=== PATIENT | male | born 1995 | race Caucasian/White ===

== ENCOUNTER 2017-06-12 08:56 | Emergency (ER) | payer SELFPAY ==
[2017-06-12 08:57] VITALS: BP 150/108; PULSE 59; RESP 22; TEMP 36.1; O2SAT 98; BMI 32.1
--- NOTE | 2017-06-12 09:08 | RAD_ITS ---
STUDY: X-RAY - LEFT HAND, ATTENTION MIDDLE FINGER REASON FOR EXAM: Male, 22 years old. Trauma, pain TECHNIQUE: 3 view(s) of the finger were obtained. COMPARISON: None. FINDINGS: Normal metacarpal head. Normal metacarpophalangeal joint. Normal proximal phalanx. Normal middle phalanx. There is a comminuted fracture of the third distal phalanx. There is overlying soft tissue swelling and irregularity. Normal proximal interphalangeal joint. Normal distal interphalangeal joint. RAD/Finger(s) Min 2 Views IMPRESSION: Comminuted fracture of the distal third phalanx. Overlying soft tissue injury suggests an open fracture. Electronically Signed: Robbie Giordano DO at 10:00 EST Tel , Service support ,
--- NOTE | 2017-06-12 09:58 | ED.VISSUMM ---
- ER Visit Summary Date of Service: 06/12/17 Chief Complaint: [Injury to left long finger] History of Present Illness: The patient is a 22 M [presents to the emergency department with an injury to his left long finger that occurred this morning. Patient states that he was helping a friend take off the tire off of a rim when it injured his left long finger. Patient is right-hand dominant. Patient is up-to-date on tetanus. Patient was seen in urgent care and referred to the emergency department.] Physical Examination: [Left long finger-patient has tenderness over the distal phalanx with nail avulsed from underneath the nail fold. Neurovascularly intact distally. He has good range of motion at the PIP and DIP joint.] Test Results: [X-rays of the left long finger obtained showed a comminuted fracture of the distal phalanx.] Emergency Department Course and Treatment: [Patient had a digital block performed using 1% lidocaine total of 8 cc used. Using sterile rubber bands and was able to get good hemostasis. Wound cleansed with Shur-Clens and irrigated with copious saline. Using curved hemostats I was able to remove the nail off of the nail bed. The proximal nail bed had a complex laceration totaling about 1.5 cm total length. Using 6-0 Vicryl a total of 4 single interrupted sutures placed with good wound edge approximation of nail bed. The nail was then sewn back in the place underneath the nail fold. Clean dressing and splint was applied.] Treatment Plan: [Patient will be given a prescription for Keflex and [place] for pain. Patient will be referred to orthopedics for follow-up within next 3-5 days.] Disposition: [Discharged home in stable condition] Impression: [Left long finger distal phalanx fracture-open Left long finger nail avulsion with nailbed laceration and simple repair] This note was generated with [employer] dictation software. It may contain incorrect words, spelling, and punctuation that were not noted in review of the chart prior to signing ED Disposition - Plan for ED Patient: Chief Complaint: Laceration Referrals: Care Physician,No Primary [Primary Care Provider] -
--- NOTE | 2017-06-12 10:01 | ED.DCSUM_ITS ---
- ER Visit Summary Date of Service: 06/12/17 Chief Complaint: [Injury to left long finger] History of Present Illness: The patient is a 22 M [presents to the emergency department with an injury to his left long finger that occurred this morning. Patient states that he was helping a friend take off the tire off of a rim when it injured his left long finger. Patient is right-hand dominant. Patient is up -to-date on tetanus. Patient was seen in urgent care and referred to the emergency department.] Physical Examination: [Left long finger-patient has tenderness over the distal phalanx with nail avulsed from underneath the nail fold. Neurovascularly intact distally. He has good range of motion at the PIP and DIP joint.] Test Results: [X-rays of the left long finger obtained showed a comminuted fracture of the distal phalanx.] Emergency Department Course and Treatment: [Patient had a digital block performed using 1% lidocaine total of 8 cc used. Using sterile rubber bands and was able to get good hemostasis. Wound cleansed with Shur-Clens and irrigated with copious saline. Using curved hemostats I was able to remove the nail off of the nail bed. The proximal nail bed had a complex laceration totaling about 1.5 cm total length. Using 6-0 Vicryl a total of 4 single interrupted sutures placed with good wound edge approximation of nail bed. The nail was then sewn back in the place underneath the nail fold. Clean dressing and splint was applied.] Treatment Plan: [Patient will be given a prescription for Keflex and [place] for pain. Patient will be referred to orthopedics for follow-up within next 3-5 days.] Disposition: [Discharged home in stable condition] Impression: [Left long finger distal phalanx fracture-open Left long finger nail avulsion with nailbed laceration and simple repair] This note was generated with [employer] dictation software. It may contain incorrect words, spelling, and punctuation that were not noted in review of the chart prior to signing ED Disposition - Plan for ED Patient: Chief Complaint: Laceration Referrals: Care Physician,No Primary [Primary Care Provider] -
--- NOTE | 2017-06-12 10:02 | ED.DEP ---
ED Disposition - Plan for ED Patient: Chief Complaint: Laceration Instructions: ED Fx Finger Open, ED Avulsion Nail Complete Prescriptions: Hydrocodone Bitart/Apap 5-325 [Ballantine 5/325] 1 - 2 tab PO Q4H PRN PRN #20 tab PRN Reason: Pain Cephalexin [Keflex] 500 mg PO Q6 #40 cap Referrals: Care Physician,No Primary [Primary Care Provider] - Ziggy Mao MD [STAFF PHYSICIAN] - 3-5 Days
[2017-06-12] MEDS: Cephalexin 250 MG Capsule 500 MG PO (10:27)
[2017-06-12] MEDS: HYDROcodone Bitartrate/Apap 5/325 Tablet PO (10:35)
[2017-06-12] MEDS: Cefazolin 1 GM/50 ML BAG IV (10:47)
[2017-06-12 11:41] VITALS: BP 140/78; PULSE 88; RESP 18; O2SAT 98
== END 2017-06-12 11:43 | disposition home or self-care (01) ==
PROVIDERS: Emergency Provider Emergency Medicine
DX: S62.633B Displaced fracture of distal phalanx of left middle finger, initial encounter for open fracture (principal); S61.313A Laceration without foreign body of left middle finger with damage to nail, initial encounter; X58.XXXA Exposure to other specified factors, initial encounter; Y93.9 Activity, unspecified; Y92.9 Unspecified place or not applicable; F12.90 Cannabis use, unspecified, uncomplicated; Z72.89 Other problems related to lifestyle; Z72.0 Tobacco use
CPT/HCPCS: 11760; 73140; 96365; 96366; 99285; A4216

== ENCOUNTER 2018-06-11 11:52 | Emergency (ER) | payer SELFPAY ==
[2018-06-11] VITALS (11 sets, daily range): BP systolic 98–163; BP diastolic 56–87; PULSE 76–95; RESP 16; TEMP 36.7; O2SAT 97–100; BMI 29.5
--- NOTE | 2018-06-11 12:27 | CM.ED ---
Social Work Note Pt pink slipped by PD. Per RNDavid, the pt was on the phone with his rwaeeh-jq-ist who contact PD. The pt was found behind [place] in his car. Reports that he has been living out of his car and used methamphetamine in the last week. He was recently diagnosed with severe depression by his counselor at [facility], but he is unable to provide the counselor's name at this time. Made the comment to nursing that he just wants to wrap his car around a tree and told the physician that he cannot give me what I want. Pt would have the means to harm himself via a MVA. Sitter with pt and crisis to evaluate for psychiatric placement. SW to continue to follow and assist as needed. Jennifer Alonzo, SWATHI, EARNESTINE
--- NOTE | 2018-06-11 12:29 | ED.RN ---
when asked what brings pt in and what can we do to help pt.. pt states.. you won't do what i need to make me feel better. when asked what that is pt refuses to answer. when asked again pt states i planned to wrap my car around a tree today, my life is going down the tubes. pt admits has been living in his car, was recently diagnosed with severe depression. no meds prescribed.. pt admits to going on a meth binge but states he is not a frequent user. pd at bedside. pink slip completed. pt with 1 on 1 sitter
--- NOTE | 2018-06-11 12:35 | ED.VISSUMM ---
- ER Visit Summary Date of Service: 06/11/18 Chief Complaint: Suicidal ideation History of Present Illness: The patient is a 23 M with a history of depression. He presents today with suicidal ideation. He plan to drive his car into a tree. It sounds like he has had difficulties with his job. He recently lost his job and he says he lost his family and home. He has been staying in his car. Police found him in his car, and they brought him here for suicidal ideation. They filled out a pink slip. He reports methamphetamine use, last use was 3 days ago. Physical Examination: Afebrile and vital signs unremarkable. Alert and oriented. Depressed mood and flat affect. Poor eye contact. Head and neck are atraumatic. Heart regular. Lungs clear. Abdomen soft. Skin appears normal. Test Results: Labs, tox screen, alcohol level pending. Emergency Department Course and Treatment: Patient had suicide precautions. He was pink slipped by police. Medical clearance testing was done. Hemoglobin 17, platelets 135, chloride 108, glucose 113, total bilirubin 1.9. Tox positive for amphetamines. Alcohol negative. Patient medically cleared for transfer to psychiatric facility. Treatment Plan: As above Disposition: Transfer pending crisis evaluation Impression: 1. Suicidal ideation 2. Methamphetamine use This note was generated with [employer] dictation software. It may contain incorrect words, spelling, and punctuation that were not noted in review of the chart prior to signing ED Disposition - Plan for ED Patient: Chief Complaint: Suicidal Referrals: Care Physician,No Primary [Primary Care Provider] -
[2018-06-11 12:48] LABS: Absolute Neutrophil Count 4.3 X10^3/uL (2.0-7.7); Basophil# 0.03 X10^3/uL; Basophil% 0.5 % (0-1); Eosinophil# 0.19 X10^3/uL; Eosinophils% 2.9 % (0-5); Hematocrit 48.3 % (40-54); Lymphocyte % 21.4 % (19-41); Mean Corp Hgb Conc 35.2 g/gl (32-36); Mean Corpuscular Hgb 29.8 pg (27.0-32.0); Mean Corpuscular Volume 84.6 fL (80-94); Mean Platelet Vol. 13.2 fl (6.2-12.0); Monocyte% 9.2 % (0-10); Neutrophil # 4.31 X10^3/uL (2.7-7.7); Neutrophil % 65.8 % (47-70); POSITIVE COUNT NO; POSITIVE DIFFERENTIAL NO; POSITIVE MORPHOLOGY NO; Platelet Count 135 K/mm3 (150-450); RBC Distribution Width SD 36.7 fl (35.1-43.9); Red Blood Count 5.71 M/mm3 (4.6-6.2); White Blood Count 6.5 K/mm3 (4.4-11.0)
[2018-06-11 13:05] LABS: ALB/GLOB Ratio 1.3 RATIO (0.9-2.4); AST(SGOT) 16 U/L (15-37); Alanine Aminotransfer ALT/SGPT 34 U/L (16-61); Albumin, Serum 4.1 g/dL (3.2-5.0); Alkaline Phosphatase 104 U/L (45-117); Anion Gap 8 (5-15); BUN 14 mg/dL (7-18); BUN/Creat Ratio 12.8 RATIO (10-20); Calcium,Total 8.4 mg/dL (8.5-10.1); Chloride 108 mmol/L (98-107); Creatinine, Serum 1.09 mg/dL (0.70-1.30); EST Glomerular Filtration Rate 87 mL/min (>60); Est Glom Filt Rate - Afr Amer 106 mL/min (>60); Estimated Creatinine Clearance 120.45 ml/min; Globulin 3.2 g/dL (2.2-4.2); Glucose 113 mg/dL (74-106); Potassium 3.8 mmol/L (3.5-5.1); Protein, Total 7.3 g/dL (6.4-8.2); Sodium Level 141 mmol/L (136-145)
[2018-06-11 13:16] LABS: Amphetamine Urine VISTA POSITIVE (<1000 ng/mL); Barbiturate Urine VISTA NEGATIVE (< 200 ng/mL); Benzodiazepine Urine VISTA NEGATIVE (< 200 ng/mL); Cocaine Urine VISTA NEGATIVE (< 300 ng/mL); Ecstacy Urine VISTA POSITIVE (< 500 ng/mL); Methadone Urine VISTA NEGATIVE (< 300 ng/mL); PCP Urine VISTA NEGATIVE (< 25 ng/mL); THC Urine VISTA NEGATIVE (< 50 ng/mL); Vista UDS pH Range 5
--- NOTE | 2018-06-11 13:28 | ED.RN ---
CRISIS COUNSELOR CONTACTED AND MADE AWARE THAT PATIENT WILL NEED EVALUATED. DISPATCHER STATES EMILY WILL CALL BACK.
--- NOTE | 2018-06-11 13:38 | ED.RN ---
Anton from crisis called and Deedee comes on at 2. She will be in after that
--- NOTE | 2018-06-11 19:17 | EKG12_ITS ---
Test Reason : Blood Pressure : / mmHG Vent. Rate : 082 BPM Atrial Rate : 082 BPM P-R Int : 176 ms QRS Dur : 100 ms QT Int : 390 ms P-R-T Axes : 062 018 026 degrees QTc Int : 455 ms Normal sinus rhythm Normal ECG Confirmed by JOSE JUAN MA, MAE ([id number]), editorial writer ROBSON PATEL ([id number]) on 06/16/2018 10:42:54 AM Referred By: SHEKHAR Confirmed By:MAE MANZANO MD
--- NOTE | 2018-06-11 23:33 | NURSING ---
ACCEPTED AT [facility] BY DR. WILKERSON UNIT C2 EXT. 213 [address] NOT AVAILABLE TILL MORNING
[2018-06-12] VITALS (8 sets, daily range): BP systolic 125; BP diastolic 65; PULSE 60; RESP 16–18; TEMP 36.4; O2SAT 97
--- NOTE | 2018-06-12 06:21 | ED.RN ---
ATTEMPTED TO CALL RN REPORT TO [facility]. STATED I NEEDED TO CALL BACK AFTER 7 DUE TO SHIFT CHANGE.
== END 2018-06-12 06:49 ==
PROVIDERS: Emergency Provider Emergency Medicine
DX: R45.851 Suicidal ideations (principal); F15.90 Other stimulant use, unspecified, uncomplicated; F32.9 Major depressive disorder, single episode, unspecified; F17.210 Nicotine dependence, cigarettes, uncomplicated
CPT/HCPCS: 36415; 80053; 80307; 80320; 85025; 93005; 99283; G0480